=== PATIENT | female | born 2000 | race Two or more races ===

== ENCOUNTER 2019-10-28 16:43 | Emergency (ER) | payer BC ==
[~2019-10-28] VITALS: Ht 167.6 cm; Wt 95.3 kg
--- NOTE | 2019-10-28 16:50 | NUR ---
ED Nurse Note: ambulated to ed from home c/o slip and fall x today. patient states she accidentally slipped on bathroom floor; laceration to left knee noted. reports getting shampoo on right eye; redness noted. Patient ao4 nad vss. ambulates with steady gait.
[2019-10-28 17:00] VITALS: BP 123/73
[2019-10-28] MEDS ORDERED: Tetanus/Diptheria/Pertussis IM ONE (17:00)
[2019-10-28] MEDS ORDERED: Lidocaine 1% 10mg/ml/EPI 0.01mg/ml 30ml INJ ONE (17:15)
[2019-10-28] MEDS ORDERED: Fluorescein Strips RIGHT EYE ONE (17:15)
[2019-10-28] MEDS ORDERED: Morgan Lens TOPIC ONE (17:15)
--- NOTE | 2019-10-28 17:27 | Diagnostic Imaging Report ---
EXAM: XR Left Knee, 3 Views CLINICAL HISTORY: Injury. Left knee pain. TECHNIQUE: Three views of the left knee. COMPARISON: None. FINDINGS: Bones/joints: No fracture, dislocation, or joint effusion. Soft tissues: The soft tissues are within normal limits. Other findings: Normal anatomic alignment. IMPRESSION: Unremarkable plain film evaluation of the left knee joint.
--- NOTE | 2019-10-28 17:30 | NUR ---
ED Nurse Note: Patient medicated and belinda lens applied; right eye irrigated; patient tolerated well. Cleansed left knee laceration
[2019-10-28] MEDS ORDERED: Bacitracin Oint UD TOPIC ONE (18:00)
--- NOTE | 2019-10-28 18:00 | NUR ---
ED Nurse Note: ERMD at bedside for laceration repair. Cleaned and dressed wound as ordered. Eduardo lens continues to irrigate right eye. patient in no acute distress.
--- NOTE | 2019-10-28 18:32 | Emergency Room Report ---
History of Present Illness General Chief Complaint: Laceration Source: Patient (Carlos Nicole) Present Illness HPI 19-year-old female with no signal past medical history here complaining 5 out of 10 eye pain and left knee pain after fall earlier today. Patient reports that she was trying to open a bottle of soap as it splashed in her right eyelid that made her scared and she slipped, did not hit head or lose consciousness, and fell in the shower her left knee. Small laceration noted to left knee. Has range of motion affected side. Vision is 20/20 in the side. Complains of burning sensation however feels improvement after Eduardo lens treatment, tetracaine usage. Has not taken medication for symptom relief. Is not up-to- date with tetanus shot and tetanus shot was given today. Denies chest pain, shortness of breath, headache and dizziness. Patient is also burning fake eyelashes and reports that she often rubs her eyes. Denies . 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 (Carlos Nicole) Patient History Past Medical History: see triage record Past Surgical History: none Pertinent Family History: none Last Menstrual Period: 10/06/19 Now: No Immunizations: other - Tdap given today Reviewed Nursing Documentation: PMH: Agreed; PSxH: Agreed (Carlos Nicole) Nursing Documentation-PMH Past Medical History: No Stated History (Carlos Nicole) Review of Systems All Other Systems: negative except mentioned in HPI (Carlos Nicole) Physical Exam Vital Signs Date Time Temp Pulse Resp B/P (MAP) Pulse Ox O2 Delivery O2 Flow Rate FiO2 10/28/19 16:48 98.4 95 15 123/73 (90) 97 Room Air Sp02 EP Interpretation: reviewed, normal General Appearance: no apparent distress, alert, GCS 15, non-toxic Head: normocephalic, atraumatic Eyes: right eye other - Conjunctive are injected however no corneal abrasion noted ENT: hearing grossly normal, normal pharynx, no angioedema, normal voice Neck: full range of motion, supple/symm/no masses Respiratory: chest non-tender, lungs clear, normal breath sounds, speaking full sentences Cardiovascular #1: regular rate, rhythm, no edema Cardiovascular #2: 2+ dorsalis pedis (R), 2+ dorsalis pedis (L) Gastrointestinal: soft Rectal: deferred Genitourinary: no CVA tenderness Neurologic: alert, oriented Psychiatric: judgement/insight normal, memory normal, mood/affect normal, no suicidal/homicidal ideation Skin: laceration - 1 cm laceration to the left knee into the dermis Lymphatic: no adenopathy (Carlos Nicole) Procedures Laceration/Wound Repair Laceration/Wound Repair : Consent: Verbal Wound Location: lower extremity - Left knee Wound Length (cm): 1 Wound Explored: contaminated Betadine Prep?: Yes Anesthesia: Lidocaine w/ Epi Volume Anesthetic (ccs): 5 Wound Debrided: minimal Wound Repaired With: sutures Suture Size/Type: 4:0, nylon Number of Sutures: 9 Layer Closure?: Yes Sterile Dressing Applied?: Yes Splint Applied?: No Sling Applied?: No Patient Tolerated: Well Complications: None (Carlos Nicloe) Eye Procedure Eye Procedure : Consent: Verbal Alcaine Drops Administered: Yes Cyclogel 2 Drops Administered: right eye Patient Tolerated: Well Complications: None Progress Wood lamp procedure was done with fluorescein strip and tetracaine was used after Eduardo lens treatment and no abrasion noted at this time (Carlos Nicole) Medical Decision Making PA Attestation All diagnoses and treatment plans were reviewed and discussed with my supervising physician Dr. Palacio (Carlos Nicole) Diagnostic Impression: Primary Impression: Chemical conjunctivitis Additional Impression: Laceration of knee ER Course 19-year-old female with no signal past medical history here complaining 5 out of 10 eye pain and left knee pain after fall earlier today. Patient reports that she was trying to open a bottle of soap as it splashed in her right eyelid that made her scared and she slipped, did not hit head or lose consciousness, and fell in the shower her left knee. Small laceration noted to left knee. Has range of motion affected side. Vision is 20/20 in the side. Complains of burning sensation however feels improvement after Eduardo lens treatment, tetracaine usage. Has not taken medication for symptom relief. Is not up-to- date with tetanus shot and tetanus shot was given today. Denies chest pain, shortness of breath, headache and dizziness. Patient is also burning fake eyelashes and reports that she often rubs her eyes. Denies . Ddx considered but are not limited to: bacterial conjunctivitis, allergic conjunctivitis, viral conjunctivitis, periorbital cellulitis, global trauma Vital signs: are WNL, pt. is afebrile H&PE are most consistent with: Chemical conjunctivitis, laceration of the knee deep into the dermis ORDERS: Augmentin, Bactroban ointment, Motrin, ofloxacin eyedrop due to patient wearing fake lashes and possibility of colitis later on, Zaditor eyedrops, knee x-ray ED INTERVENTIONS: Eduardo lens treatment, wood lamp was used, laceration repair, Motrin applied, Tdap given DISCHARGE: At this time pt. is stable for d/c to home. Will provide printed patient care instructions, and any necessary prescriptions. Care plan and follow up instructions have been discussed with the patient prior to discharge. 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 Also advised not to start the monitor. At this time patient does not have any indication for stenting further reports improvement with vision of 20/ 20 in the affected eye and the exposure was due to soap and no chemicals. (Carlos Nicole) Other X-Ray Diagnostic Results Other X-Ray Diagnostic Results : X-Ray ordered: Left knee # of Views/Limited Vs Complete: 3 View Indication: Pain EP Interpretation: Yes PA Xray: Interpretation reviewed, by supervising MD, and agrees with findings. Interpretation: no dislocation, no soft tissue swelling, no fractures, other - No foreign body seen Impression: No acute disease Electronically Signed by: Carlos Stephens PA-C (Carlos Nicole) Other X-Ray Diagnostic Results : Electronically Signed by: Lars Jeronimo documentation of Xray reviewed by me and is accurate, Tyler Palacio MD (Tyler Palacio MD) Last Vital Signs Date Time Temp Pulse Resp B/P (MAP) Pulse Ox O2 Delivery O2 Flow Rate FiO2 10/28/19 17:00 98.4 73 15 123/73 97 Room Air (Carlos Nicole) Disposition: HOME, SELF-CARE Condition: Stable Scripts Ketotifen Fumarate (ZADITOR) 5 Ml Drops 1 DROP RIGHT EYE BID for 10 Days, #5 ML 0 Refills Prov: Carlos Nicole 10/28/19 Ofloxacin (Ofloxacin) 5 Ml Drops 2 DROP OP Q6HR for 7 Days, #5 ML Prov: Carlos Nicole 10/28/19 Mupirocin* (MUPIROCIN*) 22 Gm Oint...g. 1 APPLIC TOPIC THREE TIMES A DAY, #22 GM Prov: Carlos Nicole 10/28/19 Ibuprofen* (MOTRIN*) 600 Mg Tablet 600 MG ORAL FOUR TIMES A DAY, #30 TAB 0 Refills Prov: Carlos Nicole 10/28/19 Amoxicillin/Potassium Clav 875-125* (AUGMENTIN 875-125 TABLET*) 1 Each Tablet 1 TAB ORAL TWICE A DAY for 7 Days, #14 TAB Prov: Carlos Nicole 10/28/19 Referrals: NON PHYSICIAN (PCP) Patient Instructions: Chemical Conjunctivitis, [id number], Laceration Care, Adult Additional Instructions: Take medication as directed, wear protective sunglasses, follow-up with primary doctor for referral to conveyor weigher operator, sutures to be removed in 7 to 10 days, if worsening symptoms return to the emergency room. Avoid getting the affected area wet. Carlos Nicole Oct 28, 2019 18:32 Tyler Palacio MD Oct 29, 2019 02:27
[2019-10-28] MEDS ORDERED: OFLOXACIN10 ML OP (18:34)
[2019-10-28] MEDS ORDERED: MUPIROCIN22 GM TOPIC (18:34)
[2019-10-28] MEDS ORDERED: AUGMENTIN 875-1 EAC1 ORAL (18:34)
[2019-10-28] MEDS ORDERED: IBUPROFEN600 M1 ORAL (18:34)
[2019-10-28] MEDS ORDERED: ZADITOR5 ML RIGHT EYE (18:34)
--- NOTE | 2019-10-28 18:35 | NUR ---
ER DISCHARGE NOTE: Patient is cleared to be discharged per ERMD, pt is aox4, on room air, with stable vital signs. pt was given dc and prescription instructions, pt was able to verbalize understanding, pt id band removed. pt is able to ambulate with steady gait. pt took all belongings.
[2019-10-28 18:37] VITALS: BP 123/73
== END 2019-10-28 18:35 | disposition home or self-care (01) ==
LOC: EMR 17:23
DX: H10.211 Acute toxic conjunctivitis, right eye (principal); S81.012A Laceration without foreign body, left knee, initial encounter; W01.0XXA Fall on same level from slipping, tripping and stumbling without subsequent striking against object, initial encounter; Y92.9 Unspecified place or not applicable; Z23 Encounter for immunization
CPT/HCPCS: 90471; 90715; 99283